=== PATIENT | male | born 1990 | race Caucasian/White ===

== ENCOUNTER 2019-08-25 14:01 | Emergency (ER) | payer OTHER, SELFPAY ==
--- NOTE | ~2019-08-25 | US_ITS ---
EXAMINATION: US scrotum doppler DATE: 08/25/2019 15:17 INDICATION: Right testicular pain and swelling. TECHNIQUE: Grayscale and Doppler ultrasound images of the testes were obtained. COMPARISON: None. FINDINGS: The right testis measures 5.2 x 2.7 x 2.4 cm. The left testis measures 4.4 x 2.2 x 3.0 cm. There is normal vascular flow to both testes. The right epididymis is not well visualized. The left e pididymis is normal with normal vascular flow. There is a large right-sided hydrocele. IMPRESSION: 1. Large right-sided hydrocele. Reviewed, dictated and finalized at location A.
[2019-08-25 14:12] VITALS: BP 123/67; PULSE 112; RESP 16; TEMP 36.3; O2SAT 99
[2019-08-25 15:02] LABS: Add Urine Microscopic? NO; Appearance Urine Clear (Clear); Bilirubin Urine Negative (Negative); Blood Urine Negative (Negative); Color Urine Straw (Yellow); Glucose Urine UA Negative (Negative); Ketones Urine Negative (Negative); Leukocyte Esterase Ur Negative LEU/UL (Negative); Nitrate Urine Negative (Negative); Protein Urine Negative (Negative); Specific Grav Ur 1.018 (1.001-1.035); Urobilinogen Urine Negative mg/dL (<2.0)
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
== END 2019-08-25 16:05 | disposition home or self-care (01) ==
PROVIDERS: Emergency Medicine Emergency Medical Services; Emergency Provider Emergency Medicine
DX: N43.3 Hydrocele, unspecified (principal)
CPT/HCPCS: 76870; 81003; 87491; 87591; 93976; 99284

== ENCOUNTER 2020-11-12 23:11 | Emergency (ER) | payer OTHER, SELFPAY ==
[2020-11-12 23:09] VITALS: BP 140/84; PULSE 80; RESP 16; TEMP 36.7; O2SAT 97
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
[2020-11-12] MEDS: IBUPROFEN 600 MG TABLET PO (23:58)
[2020-11-12] MEDS: CLINDAMYCIN HCL 150 MG CAP 300 MG PO (23:59)
[2020-11-13 00:28] VITALS: BP 126/78; PULSE 81; RESP 18; O2SAT 99
== END 2020-11-13 00:29 | disposition home or self-care (01) ==
PROVIDERS: Emergency Provider Emergency Medicine
DX: J02.0 Streptococcal pharyngitis (principal)
CPT/HCPCS: 99283; A9270

== ENCOUNTER 2020-12-24 14:50 | Emergency (ER) | payer OTHER, SELFPAY ==
--- NOTE | ~2020-12-24 | XR_ITS ---
EXAMINATION: XR chest 2V EXAM DATE: 12/24/2020 15:21 INDICATION: Rib pain. TECHNIQUE: Frontal and lateral projections of the chest obtained and reviewed. There is no prior monet dy for comparison. FINDINGS: Moderate hyperinflation, narrow cardiac silhouette. No confluent consolidation, pneumothor ax or pleural effusion suspected. There are no osseous abnormalities identified. IMPRESSION: Hyperinflation. Unremarkable ribs. Reviewed, dictated and finalized at location B. [facility]
--- NOTE | 2020-12-24 14:55 | ECG_ITS ---
Measurements Intervals [place] Rate: 81 P: 80 TN: 130 QRS: 77 QRSD: 98 T: 72 QT: 387 QTc: 450 Interpretive Statements SINUS RHYTHM BASELINE ARTIFACT- I, II, AVR NORMAL ECG Electronically Signed On 12-24-2020 15:12:48 [employer] by Stewart Maza D.O.
[2020-12-24 14:56] VITALS: BP 102/63; PULSE 85; RESP 18; TEMP 36.3; O2SAT 100
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
== END 2020-12-24 16:30 | disposition home or self-care (01) ==
PROVIDERS: Emergency Provider Emergency Medicine
DX: S23.41XA Sprain of ribs, initial encounter (principal); X58.XXXA Exposure to other specified factors, initial encounter
CPT/HCPCS: 71046; 93005; 99283

== ENCOUNTER 2021-02-04 16:09 | Emergency (ER) | payer OTHER, SELFPAY ==
[2021-02-04 16:13] VITALS: BP 108/74; PULSE 72; RESP 18; TEMP 36.6; O2SAT 100
--- NOTE | 2021-02-04 18:31 | PC.NURSE ---
1815 Pt ambulated out of ED with steady gait.
== END 2021-02-05 00:39 | disposition left against medical advice (07) ==
LOC: ANHED 18:39
DX: Z53.21 Procedure and treatment not carried out due to patient leaving prior to being seen by health care provider (principal)
CPT/HCPCS: 99199

== ENCOUNTER 2021-05-14 08:27 | Emergency (ER) | payer OTHER, SELFPAY ==
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
[2021-05-14 08:29] VITALS: BP 123/98; PULSE 108; RESP 28; O2SAT 97
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
[2021-05-14] MEDS: TETANUS/DIPHTHERIA TOXOIDS ADSORB 0.5 ML VIAL (*BKC) IM (08:41)
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
[2021-05-14] MEDS: LORazepam INJ (*CRX) 2 MG/ML VIAL 1 MG IV PUSH (10:19)
== END 2021-05-14 11:23 | disposition home or self-care (01) ==
PROVIDERS: Emergency Provider Emergency Medicine
DX: S41.112A Laceration without foreign body of left upper arm, initial encounter (principal); F19.10 Other psychoactive substance abuse, uncomplicated; F41.9 Anxiety disorder, unspecified; Z23 Encounter for immunization; X58.XXXA Exposure to other specified factors, initial encounter
CPT/HCPCS: 12032; 71046; 90471; 90714; 96374; 99284; J2060

== ENCOUNTER 2021-08-07 21:06 | Emergency (ER) | payer OTHER, SELFPAY ==
--- NOTE | ~2021-08-07 | XR_ITS ---
XR forearm LT 2V 08/08/2021 01:08 INDICATION: Left arm pain PROCEDURE: 2 views left forearm COMPARISON: No prior studies for comparison. FINDINGS: Fracture, dislocation or subluxation is not identified. The soft tissues appear within norm al limits. No foreign bodies are identified. IMPRESSION: 1: NO ACUTE BONE OR JOINT ABNORMALITY IDENTIFIED. Reviewed, dictated and finalized at location A.
[2021-08-07 21:56] VITALS: BP 118/97; PULSE 95; RESP 18; TEMP 36.9; O2SAT 98
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
[2021-08-08] MEDS: TETANUS,DIPHTHERIA,AC PERTUSSIS ADULT (0.5 ML) BOOSTRIX IM (01:18)
[2021-08-08] MEDS: LIDO 1%/EPINEPHRINE 1:100,000 20 ML VIAL INFILTRATE (01:22)
[2021-08-08] MEDS: LORazepam (*CRX) 0.5 MG TABLET PO (02:52)
== END 2021-08-08 03:21 | disposition home or self-care (01) ==
PROVIDERS: Emergency Provider Emergency Medicine
DX: S51.812A Laceration without foreign body of left forearm, initial encounter (principal); W25.XXXA Contact with sharp glass, initial encounter; Z23 Encounter for immunization
CPT/HCPCS: 12001; 73090; 90471; 90715; 99283; A4565; A9270

== ENCOUNTER 2023-07-06 18:05 | Emergency (ER) | payer OTHER, SELFPAY ==
--- NOTE | ~2023-07-06 | XR_ITS ---
XR hand RT min 3V 07/06/2023 20:10 INDICATION: Right hand pain PROCEDURE: 3 views right hand COMPARISON: No prior studies for comparison. FINDINGS: Fracture, dislocation or subluxation is not identified. The soft tissues appear within norm al limits. No foreign bodies are identified. IMPRESSION: 1: NO ACUTE BONE OR JOINT ABNORMALITY IDENTIFIED. Reviewed, dictated and finalized at location A.
[2023-07-06 18:10] VITALS: BP 122/70; PULSE 93; RESP 16; TEMP 36.6; O2SAT 98
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
[2023-07-06] MEDS: TETANUS,DIPHTHERIA,AC PERTUSSIS ADULT (0.5 ML) BOOSTRIX IM (20:16)
== END 2023-07-06 22:01 | disposition left against medical advice (07) ==
PROVIDERS: Emergency Provider Physician Assistant
DX: S61.212A Laceration without foreign body of right middle finger without damage to nail, initial encounter (principal); Z23 Encounter for immunization; F17.200 Nicotine dependence, unspecified, uncomplicated; W23.0XXA Caught, crushed, jammed, or pinched between moving objects, initial encounter
CPT/HCPCS: 73130; 90471; 90715; 99283